=== PATIENT | male | born 1995 | race Caucasian/White ===

== ENCOUNTER 2021-09-13 12:55 | Outpatient (RCR) | payer OTHER, SELFPAY ==
--- NOTE | 2021-09-13 14:04 | PTOPEVAL ---
Thank you for referring Kosta Arevalo to [facility].? The patient is scheduled to be seen for therapy? ____x/week for ___ weeks. Please review, sign, date and return this plan of care JAYNE. I agree with and certify that the following plan of care is medically necessary. 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 It did not hurt him that day but it has been shooting pain from the base of the skull down to the L thoracic spine. 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 Nothing is truly difficult but the pain is persistent and really effecting his quality of life. Prior Level of Function Activity Level (Last 3 Months) Occupation EMT Hand Dominance Left Activity of Daily Living Ability Independent Indoor/Home Mobility Independent Community Mobility Independent Stairs Ability Independent Functional Cognition (Planning, Shopping Independent , Taking Medications) Cooking Yes Cleaning Yes Laundry Yes Shopping Yes Driving Yes Pain Assessment Timing of Pain Assessment Timing of Pain Assessment Assessment Pain Scale Pain Scale Used Numeric (1 - 10) Self Report Pain Assessment Neck Reported Pain Level 3 Pain Description Pulling,Radiating,Tightness, Tingling Greatest Pain Intensity 6 Pain Score Pain Score 3: Self Report Interventions Used Interventions Used By Clinicians Activity or ADL's,Electrical Stimu
== END 2021-09-20 10:26 | disposition home or self-care (01) ==
LOC: CHSPT 12:55
PROVIDERS: PCP Physician Assistant; Visit Provider Physician Assistant
DX: M54.9 Dorsalgia, unspecified (principal)
CPT/HCPCS: 97014; 97110; 97140; 97161; G0283